=== PATIENT | male | born 1970 | race Caucasian/White ===

== ENCOUNTER 2023-05-06 13:01 | Inpatient (IN) | payer MEDICAID ==
[~2023-05-06] VITALS: Ht 170.2 cm; Wt 83.5 kg
[2023-05-06 13:39] VITALS: BP 176/96; PULSE 116; RESP 19; TEMP 98.3; O2SAT 99
[2023-05-06 16:31] LABS: BASOPHILS # (AUTO) 0.1 K/uL (0.00-0.22); BASOPHILS % (AUTO) 0.4 % (0.0-2.0); EOSINOPHILS # (AUTO) 0.9 K/uL (0-0.4); HEMATOCRIT 20.7 % (36-52); LYMPHOCYTES % (AUTO) 19.5 % (20.5-51.1); MEAN CORPUSCULAR HEMOGLOBIN 26 pg (27-31); MEAN CORPUSCULAR HGB CONC 32 g/dL (33-37); MEAN CORPUSCULAR VOLUME 80.1 fL (80-94); MONOCYTES # (AUTO) 1.2 K/uL (0.8-1.0); MONOCYTES % (AUTO) 7.7 % (1.7-9.3); NEUTROPHILS # (AUTO) 10.1 K/uL (1.8-7.7); NEUTROPHILS % (AUTO) 66.4 % (42.2-75.2); PLATELET COUNT (AUTO) 470 K/uL (140-450); RED BLOOD CELL COUNT(AUTO) 2.58 MIL/uL (4.20-6.10); RED CELL DISTRIBUTION WIDTH 24.7 % (11.6-13.7); WHITE BLOOD COUNT (AUTO) 15.3 K/uL (4.8-10.8)
[2023-05-06 16:38] LABS: HEMOGLOBIN 6.7 g/dL (12.0-18.0)
[2023-05-06 16:49] LABS: CARBON DIOXIDE 26.2 mmol/L (21-32); POTASSIUM 4.2 mmol/L (3.5-5.1)
[2023-05-06] MEDS: NACL 0.9% 2,000 ML IV ONE (17:42)
[2023-05-06 17:45] LABS: ALBUMIN 2.7 g/dL (3.4-5.0); BILIRUBIN,DIRECT 0.1 mg/dL (0.0-0.3); TOTAL BILIRUBIN 0.3 mg/dL (0.0-1.0); TOTAL PROTEIN, SERUM 8.1 g/dL (6.4-8.2)
[2023-05-06 17:56] LABS: INR 1.07 (0.8-1.2); PARTIAL THROMBOPLASTIN TIME 30.6 secs (22-35.6); PROTHROMBIN TIME 11.2 secs (10.8-13.4)
[2023-05-06] MEDS: MORPHINE SULFATE 2 MG/ML SYR IVP PRN (18:55)
[2023-05-06] MEDS ORDERED: LOSA-272 PO (19:33)
[2023-05-06] MEDS ORDERED: HYDR50TA38 PO (19:35)
[2023-05-06] MEDS: DEXT 5% / NACL 0.45% 1,000 ML IV SCH (22:23)
[2023-05-07] MEDS: HYDROcodone/APAP 5/325 MG 1 TAB TAB PO PRN (00:28)
[2023-05-07 05:37] LABS: BASOPHILS # (AUTO) 0.1 K/uL (0.00-0.22); BASOPHILS % (AUTO) 0.6 % (0.0-2.0); EOSINOPHILS # (AUTO) 1.3 K/uL (0-0.4); EOSINOPHILS % (AUTO) 11.7 % (0.0-4.0); HEMATOCRIT 20.9 % (36-52); LYMPHOCYTES % (AUTO) 27.1 % (20.5-51.1); MEAN CORPUSCULAR HEMOGLOBIN 26 pg (27-31); MEAN CORPUSCULAR HGB CONC 32 g/dL (33-37); MEAN CORPUSCULAR VOLUME 81.8 fL (80-94); MONOCYTES % (AUTO) 9.1 % (1.7-9.3); NEUTROPHILS # (AUTO) 5.7 K/uL (1.8-7.7); NEUTROPHILS % (AUTO) 51.5 % (42.2-75.2); PLATELET COUNT (AUTO) 377 K/uL (140-450); RED BLOOD CELL COUNT(AUTO) 2.55 MIL/uL (4.20-6.10); RED CELL DISTRIBUTION WIDTH 22.1 % (11.6-13.7); WHITE BLOOD COUNT (AUTO) 11.2 K/uL (4.8-10.8)
[2023-05-07 06:16] LABS: ALBUMIN 2.2 g/dL (3.4-5.0); ANION GAP 11.1 (8-16); CALCIUM 8.6 mg/dL (8.5-10.1); CARBON DIOXIDE 27.3 mmol/L (21-32); CREATININE 2.3 mg/dL (0.6-1.3); POTASSIUM 4.4 mmol/L (3.5-5.1); TOTAL BILIRUBIN 0.8 mg/dL (0.0-1.0); TOTAL PROTEIN, SERUM 6.5 g/dL (6.4-8.2)
[2023-05-07 06:48] LABS: HEMOGLOBIN 6.7 g/dL (12.0-18.0)
[2023-05-07] MEDS ORDERED: cefTRIAXone 1,000 MG VIAL ONE (07:06)
[2023-05-07] MEDS: PANTOPRAZOLE 40 MG TABEC PO SCH (09:02)
[2023-05-07 20:30] VITALS: BP 159/89; PULSE 100; RESP 18; TEMP 98.1; O2SAT 99
[2023-05-07 20:31] VITALS: PULSE 100; RESP 18; O2SAT 99
[2023-05-07 20:44] VITALS: PULSE 102
[2023-05-07 21:47] LABS: HEMATOCRIT 24.9 % (36-52)
[2023-05-07] MEDS: ACETAMINOPHEN 325 MG TAB PO PRN (23:37)
[2023-05-07 23:55] VITALS: PULSE 90
[2023-05-08] VITALS (8 sets, daily range): BP systolic 123–176; BP diastolic 70–99; PULSE 85–112; RESP 18–22; TEMP 97.6–98.9; O2SAT 95–100
[2023-05-08] MEDS: cefTRIAXone 1,000 MG VIAL ONE (06:48)
[2023-05-08 08:09] LABS: BASOPHILS % (AUTO) 0.4 % (0.0-2.0); EOSINOPHILS # (AUTO) 1.8 K/uL (0-0.4); EOSINOPHILS % (AUTO) 14.2 % (0.0-4.0); HEMATOCRIT 24.9 % (36-52); HEMOGLOBIN 8.2 g/dL (12.0-18.0); LYMPHOCYTES # (AUTO) 3.1 K/uL (2.0-11.5); LYMPHOCYTES % (AUTO) 25.3 % (20.5-51.1); MEAN CORPUSCULAR HEMOGLOBIN 27 pg (27-31); MEAN CORPUSCULAR HGB CONC 33 g/dL (33-37); MONOCYTES % (AUTO) 7.8 % (1.7-9.3); NEUTROPHILS # (AUTO) 6.5 K/uL (1.8-7.7); NEUTROPHILS % (AUTO) 52.3 % (42.2-75.2); PLATELET COUNT (AUTO) 400 K/uL (140-450); RED BLOOD CELL COUNT(AUTO) 3.03 MIL/uL (4.20-6.10); RED CELL DISTRIBUTION WIDTH 20.8 % (11.6-13.7); WHITE BLOOD COUNT (AUTO) 12.4 K/uL (4.8-10.8)
[2023-05-08 08:27] LABS: ALBUMIN 2.2 g/dL (3.4-5.0); ANION GAP 15.5 (8-16); CALCIUM 8.4 mg/dL (8.5-10.1); CREATININE 2.9 mg/dL (0.6-1.3); POTASSIUM 4.5 mmol/L (3.5-5.1); TOTAL BILIRUBIN 0.4 mg/dL (0.0-1.0); TOTAL PROTEIN, SERUM 6.9 g/dL (6.4-8.2)
[2023-05-08 09:06] LABS: PROTEIN, TOTAL, SERUM 7.4 g/dL (6.0-8.5)
[2023-05-08] MEDS ORDERED: ACYC-276 PO (10:15)
[2023-05-08] MEDS ORDERED: HYDR-2734 TP (10:15)
[2023-05-08] MEDS ORDERED: DOXY-690 PO (10:15)
[2023-05-08] MEDS: hydrALAZINE 20 MG/ML VIAL IVP PRN (20:31)
[2023-05-09] VITALS (8 sets, daily range): BP systolic 145–176; BP diastolic 75–100; PULSE 95–126; RESP 18; TEMP 96.8–98.4; O2SAT 97–100
[2023-05-09 03:41] LABS: APPEARANCE,URINE CLEAR (CLEAR); BILIRUBIN,URINE NEGATIVE (NEGATIVE); BLOOD, URINE 2+ (NEGATIVE); COLOR,URINE YELLOW (YELLOW); LEUKOCYTE ESTERASE ,URINE NEGATIVE (NEGATIVE); NITRITE, URINE NEGATIVE (NEGATIVE); PROTEIN,URINE NEGATIVE (NEGATIVE); UGLUCOSE NEGATIVE (NEGATIVE); UROBILINOGEN,URINE 0.2 EU/dL (0.2 - 1)
[2023-05-09 04:02] LABS: BACTERIA,URINE OCCASSIONAL /HPF (None Seen); RBC,URINE 20-50 /HPF (0-5); SQUAMOUS EPITHELIAL CELL,UR 0-3 (FEW) /LPF (0-3 (FEW)); WBC,URINE 0-5 /HPF (0-5)
[2023-05-09] MEDS: diphenhydrAMINE 50 MG/ML VIAL IVP ONE (06:59)
[2023-05-09] MEDS ORDERED: amLODIPine 5 MG TAB PO SCH (09:30)
[2023-05-09 16:28] LABS: BASOPHILS % (AUTO) 0.3 % (0.0-2.0); EOSINOPHILS # (AUTO) 1.8 K/uL (0-0.4); EOSINOPHILS % (AUTO) 12.2 % (0.0-4.0); HEMATOCRIT 29.5 % (36-52); HEMOGLOBIN 9.5 g/dL (12.0-18.0); LYMPHOCYTES # (AUTO) 3.9 K/uL (2.0-11.5); LYMPHOCYTES % (AUTO) 26.5 % (20.5-51.1); MEAN CORPUSCULAR HEMOGLOBIN 27 pg (27-31); MEAN CORPUSCULAR HGB CONC 32 g/dL (33-37); MEAN CORPUSCULAR VOLUME 82.2 fL (80-94); MONOCYTES % (AUTO) 6.7 % (1.7-9.3); NEUTROPHILS % (AUTO) 54.3 % (42.2-75.2); PLATELET COUNT (AUTO) 470 K/uL (140-450); RED BLOOD CELL COUNT(AUTO) 3.59 MIL/uL (4.20-6.10); RED CELL DISTRIBUTION WIDTH 21.2 % (11.6-13.7); WHITE BLOOD COUNT (AUTO) 14.7 K/uL (4.8-10.8)
[2023-05-09 16:58] LABS: ALBUMIN 2.6 g/dL (3.4-5.0); ANION GAP 16.1 (8-16); CREATININE 2.9 mg/dL (0.6-1.3); POTASSIUM 4.1 mmol/L (3.5-5.1); TOTAL BILIRUBIN 0.4 mg/dL (0.0-1.0)
[2023-05-09] MEDS: DICYCLOMINE HCL LIQUID 10 MG/5 ML UDC PO PRN (21:34)
[2023-05-09] MEDS: ALUMINUM HYD/MAG/SIMETHICONE 30 ML UDC PO PRN (21:35)
[2023-05-10] VITALS (12 sets, daily range): BP systolic 139–176; BP diastolic 92–106; PULSE 102–125; RESP 18–20; TEMP 97.4–98.5; O2SAT 98–99
[2023-05-10 05:41] LABS: BASOPHILS % (AUTO) 0.4 % (0.0-2.0); EOSINOPHILS # (AUTO) 1.1 K/uL (0-0.4); EOSINOPHILS % (AUTO) 9.9 % (0.0-4.0); HEMATOCRIT 25.9 % (36-52); HEMOGLOBIN 8.5 g/dL (12.0-18.0); LYMPHOCYTES # (AUTO) 2.6 K/uL (2.0-11.5); MEAN CORPUSCULAR HEMOGLOBIN 27 pg (27-31); MEAN CORPUSCULAR HGB CONC 33 g/dL (33-37); MEAN CORPUSCULAR VOLUME 81.8 fL (80-94); MONOCYTES # (AUTO) 0.8 K/uL (0.8-1.0); MONOCYTES % (AUTO) 7.6 % (1.7-9.3); NEUTROPHILS # (AUTO) 6.6 K/uL (1.8-7.7); NEUTROPHILS % (AUTO) 59.1 % (42.2-75.2); PLATELET COUNT (AUTO) 385 K/uL (140-450); RED BLOOD CELL COUNT(AUTO) 3.17 MIL/uL (4.20-6.10); RED CELL DISTRIBUTION WIDTH 20.5 % (11.6-13.7); WHITE BLOOD COUNT (AUTO) 11.2 K/uL (4.8-10.8)
[2023-05-10 06:39] LABS: ALBUMIN 2.4 g/dL (3.4-5.0); ANION GAP 16.8 (8-16); CARBON DIOXIDE 23.5 mmol/L (21-32); POTASSIUM 4.3 mmol/L (3.5-5.1); TOTAL BILIRUBIN 0.4 mg/dL (0.0-1.0); TOTAL PROTEIN, SERUM 7.5 g/dL (6.4-8.2)
[2023-05-10] MEDS: amLODIPine 5 MG TAB PO SCH (08:12)
[2023-05-10 09:54] LABS: INR 1.06 (0.8-1.2); PARTIAL THROMBOPLASTIN TIME 32.3 secs (22-35.6); PROTHROMBIN TIME 11.1 secs (10.8-13.4)
[2023-05-10] MEDS ORDERED: LORazepam 2 MG/ML VIAL IVP PRN (09:55)
[2023-05-10 10:06] LABS: AFP (TUMOR MARKER) 2.6 ng/mL (0.0-6.9)
[2023-05-10 16:06] LABS: A/G RATIO 0.7 (0.7-1.7); GAMMA GLOBULIN 1.6 g/dL (0.4-1.8); M-SPIKE Not Observed g/dL (Not Observed)
[2023-05-10 16:50] LABS: ALPHA-1-GLOBULIN 0.5 g/dL (0.1 - 0.4); ALPHA-2-GLOBULIN 1.3 g/dL (0.4 - 1.2); GLOBULIN, TOTAL 4.4 g/dL (2.0 - 4.5)
[2023-05-10 16:51] LABS: CARCINOEMBRYONIC AG 7.4 ng/mL (0.0-4.7)
[2023-05-11] VITALS: BP 149/91; PULSE 106; RESP 20; TEMP 97.8; O2SAT 99
[2023-05-11 04:00] VITALS: BP 148/93; PULSE 95; PULSE 98; RESP 20; TEMP 97.7; O2SAT 99
[2023-05-11 05:30] LABS: BASOPHILS # (AUTO) 0.1 K/uL (0.00-0.22); BASOPHILS % (AUTO) 0.6 % (0.0-2.0); EOSINOPHILS # (AUTO) 1.1 K/uL (0-0.4); EOSINOPHILS % (AUTO) 10.5 % (0.0-4.0); HEMATOCRIT 25.5 % (36-52); HEMOGLOBIN 8.3 g/dL (12.0-18.0); LYMPHOCYTES # (AUTO) 2.1 K/uL (2.0-11.5); LYMPHOCYTES % (AUTO) 20.3 % (20.5-51.1); MEAN CORPUSCULAR HEMOGLOBIN 27 pg (27-31); MEAN CORPUSCULAR HGB CONC 33 g/dL (33-37); MEAN CORPUSCULAR VOLUME 82.1 fL (80-94); MONOCYTES # (AUTO) 0.9 K/uL (0.8-1.0); MONOCYTES % (AUTO) 8.6 % (1.7-9.3); NEUTROPHILS # (AUTO) 6.1 K/uL (1.8-7.7); PLATELET COUNT (AUTO) 353 K/uL (140-450); RED CELL DISTRIBUTION WIDTH 21.1 % (11.6-13.7); WHITE BLOOD COUNT (AUTO) 10.2 K/uL (4.8-10.8)
[2023-05-11 06:00] LABS: ALBUMIN 2.5 g/dL (3.4-5.0); ANION GAP 16.3 (8-16); CALCIUM 9.3 mg/dL (8.5-10.1); CARBON DIOXIDE 24.5 mmol/L (21-32); CREATININE 3.1 mg/dL (0.6-1.3); POTASSIUM 4.8 mmol/L (3.5-5.1); TOTAL BILIRUBIN 0.4 mg/dL (0.0-1.0); TOTAL PROTEIN, SERUM 7.5 g/dL (6.4-8.2)
[2023-05-11] MEDS: NIFEdipine 60 MG TABER PO SCH (08:16)
[2023-05-11 08:47] VITALS: BP 157/98; PULSE 103; RESP 20; TEMP 98; O2SAT 98
[2023-05-11 08:49] VITALS: PULSE 103; PULSE 94; RESP 20; TEMP 98; O2SAT 98
[2023-05-11 09:06] LABS: PSA FREE REFLE CRITERIA SEE COMMENTS
[2023-05-11 16:23] VITALS: BP 122/77; PULSE 108; RESP 20; TEMP 98; O2SAT 98
[2023-05-11 20:00] VITALS: PULSE 103; RESP 20; O2SAT 98
[2023-05-12] VITALS: BP 133/81; PULSE 98; RESP 20; TEMP 97.6; O2SAT 98
[2023-05-12 06:10] LABS: BASOPHILS # (AUTO) 0.1 K/uL (0.00-0.22); BASOPHILS % (AUTO) 0.7 % (0.0-2.0); EOSINOPHILS # (AUTO) 1.1 K/uL (0-0.4); EOSINOPHILS % (AUTO) 9.2 % (0.0-4.0); HEMATOCRIT 26.5 % (36-52); HEMOGLOBIN 8.4 g/dL (12.0-18.0); LYMPHOCYTES % (AUTO) 25.8 % (20.5-51.1); MEAN CORPUSCULAR HEMOGLOBIN 26 pg (27-31); MEAN CORPUSCULAR HGB CONC 32 g/dL (33-37); MEAN CORPUSCULAR VOLUME 82.6 fL (80-94); MONOCYTES % (AUTO) 8.7 % (1.7-9.3); NEUTROPHILS # (AUTO) 6.4 K/uL (1.8-7.7); NEUTROPHILS % (AUTO) 55.6 % (42.2-75.2); PLATELET COUNT (AUTO) 410 K/uL (140-450); WHITE BLOOD COUNT (AUTO) 11.5 K/uL (4.8-10.8)
[2023-05-12 06:41] LABS: ALBUMIN 2.5 g/dL (3.4-5.0); ANION GAP 16.2 (8-16); CALCIUM 8.8 mg/dL (8.5-10.1); CARBON DIOXIDE 24.4 mmol/L (21-32); CREATININE 2.8 mg/dL (0.6-1.3); POTASSIUM 4.6 mmol/L (3.5-5.1); TOTAL BILIRUBIN 0.4 mg/dL (0.0-1.0); TOTAL PROTEIN, SERUM 7.8 g/dL (6.4-8.2)
[2023-05-12] MEDS: LACTATED RINGERS 1,000 ML IV SCH (07:15)
[2023-05-12] MEDS ORDERED: ONDANSETRON 4 MG/2 ML VIAL IVP PRN (07:15)
[2023-05-12] MEDS ORDERED: HYDROmorphone 1 MG/ML AMP IVP PRN (07:15)
[2023-05-12] MEDS: DEXAMETHASONE 4 MG/ML VIAL ONE (07:58)
[2023-05-12] MEDS: METOCLOPRAMIDE 10 MG/2 ML INJ VIAL ONE (07:58)
[2023-05-12] MEDS: PROPOFOL 200 MG/20 ML VIAL IV ONE (07:58)
[2023-05-12] MEDS: ONDANSETRON 4 MG/2 ML VIAL ONE (07:58)
[2023-05-12] MEDS: MIDAZOLAM 2 MG/2 ML VIAL ONE (07:58)
[2023-05-12] MEDS: fentaNYL citrate 0.05 MG/ML VIAL ONE (07:58)
[2023-05-12] MEDS: SUCCINYLCHOLINE CHLORIDE 200 MG/10 ML VIAL IVP ONE (07:59)
[2023-05-12] MEDS: ESMOLOL 10 ML IV ONE (07:59)
[2023-05-12] MEDS: ROCURONIUM 50 MG/5 ML VIAL IV ONE (07:59)
[2023-05-12] MEDS: BLOOD GLUCOSE MONITORING 1 DEV DEV FS ONE (08:00)
[2023-05-12] MEDS: SUGAMMADEX SODIUM 200 MG/2 ML VIAL IV ONE (08:20)
[2023-05-12 09:16] VITALS: PULSE 103; PULSE 120; RESP 20; TEMP 98; O2SAT 98
[2023-05-12 09:39] VITALS: BP 134/79; PULSE 120; RESP 20; TEMP 96.9; O2SAT 94
[2023-05-12] MEDS: diphenhydrAMINE 50 MG/ML VIAL IVP PRN (15:48)
[2023-05-12 16:00] VITALS: BP 124/76; PULSE 97; RESP 18; TEMP 98.2; O2SAT 98
[2023-05-12] MEDS: DOCUSATE SODIUM 100 MG GELCAP PO PRN (19:15)
[2023-05-12 20:00] VITALS: RESP 20; O2SAT 98
[2023-05-13] VITALS: BP 118/72; PULSE 96; RESP 18; TEMP 97.2; O2SAT 98
[2023-05-13 08:00] VITALS: BP 119/77; PULSE 102; RESP 20; TEMP 97.2; O2SAT 99
[2023-05-13] MEDS: BICALUTAMIDE 50 MG TAB PO SCH (08:54)
[2023-05-13 16:00] VITALS: BP 116/71; PULSE 107; RESP 18; TEMP 97.3; O2SAT 97
[2023-05-13 20:00] VITALS: PULSE 90; RESP 20; O2SAT 98
[2023-05-14 04:00] VITALS: BP 112/64; PULSE 99; RESP 18; TEMP 99.3; O2SAT 97
[2023-05-14 08:00] VITALS: BP 145/94; PULSE 100; RESP 20; TEMP 97.7; O2SAT 97
[2023-05-14 08:25] VITALS: TEMP 98.3
[2023-05-14 08:31] VITALS: PULSE 89; RESP 19; O2SAT 99
[2023-05-14 16:00] VITALS: BP 145/83; PULSE 105; RESP 20; TEMP 97.8; O2SAT 97
[2023-05-14 20:00] VITALS: BP 144/80; PULSE 107; RESP 18; TEMP 97.6; O2SAT 100
[2023-05-15 04:00] VITALS: BP 138/76; PULSE 98; RESP 18; TEMP 97.8; O2SAT 100
[2023-05-15 07:49] LABS: BASOPHILS # (AUTO) 0.1 K/uL (0.00-0.22); BASOPHILS % (AUTO) 1.2 % (0.0-2.0); EOSINOPHILS # (AUTO) 0.6 K/uL (0-0.4); EOSINOPHILS % (AUTO) 6.7 % (0.0-4.0); HEMATOCRIT 27.7 % (36-52); LYMPHOCYTES # (AUTO) 2.4 K/uL (2.0-11.5); LYMPHOCYTES % (AUTO) 25.5 % (20.5-51.1); MEAN CORPUSCULAR HEMOGLOBIN 27 pg (27-31); MEAN CORPUSCULAR HGB CONC 32 g/dL (33-37); MONOCYTES % (AUTO) 9.9 % (1.7-9.3); NEUTROPHILS # (AUTO) 5.5 K/uL (1.8-7.7); NEUTROPHILS % (AUTO) 56.7 % (42.2-75.2); PLATELET COUNT (AUTO) 560 K/uL (140-450); RED BLOOD CELL COUNT(AUTO) 3.38 MIL/uL (4.20-6.10); RED CELL DISTRIBUTION WIDTH 20.5 % (11.6-13.7); WHITE BLOOD COUNT (AUTO) 9.6 K/uL (4.8-10.8)
[2023-05-15 07:57] LABS: ALBUMIN 2.6 g/dL (3.4-5.0); ANION GAP 17.7 (8-16); CALCIUM 9.1 mg/dL (8.5-10.1); CARBON DIOXIDE 24.6 mmol/L (21-32); CREATININE 1.7 mg/dL (0.6-1.3); POTASSIUM 4.3 mmol/L (3.5-5.1); TOTAL BILIRUBIN 0.4 mg/dL (0.0-1.0)
[2023-05-15 08:00] VITALS: BP 138/94; PULSE 98; RESP 16; TEMP 97.6; O2SAT 98
[2023-05-15 08:45] LABS: ANISOCYTOSIS 3+; HYPOCHROMASIA 1+
[2023-05-15 11:03] VITALS: PULSE 77; PULSE 90; RESP 16; RESP 17; O2SAT 96; O2SAT 98
[2023-05-15] MEDS ORDERED: BICA50TA7 PO (11:36)
[2023-05-15] MEDS ORDERED: NIFE60TA39 PO (11:36)
[2023-05-15] MEDS ORDERED: ACET-1182 PO (11:36)
[2023-05-15 20:00] VITALS: PULSE 90; RESP 18; O2SAT 99
[2023-05-16] VITALS: BP 145/87; PULSE 98; RESP 18; TEMP 96.6; O2SAT 99
[2023-05-16 08:00] VITALS: BP 144/88; PULSE 84; PULSE 89; RESP 18; RESP 19; TEMP 98.3; O2SAT 100; O2SAT 99
== END 2023-05-16 15:00 | disposition home or self-care (01) | DRG 500 ==
LOC: MED 13:01 → MTU 18:16 → MMU 05-09 23:50
PROVIDERS: ADMIT Family Medicine; ATTEND Family Medicine
PROC: 30233N1 Transfusion of Nonautologous Red Blood Cells into Peripheral Vein, Percutaneous Approach (ICD-10-PCS; 2023-05-06)
PROC: 0T9B80Z Drainage of Bladder with Drainage Device, Via Natural or Artificial Opening Endoscopic (ICD-10-PCS; principal; 2023-05-12 07:30)
DX: C61 Malignant neoplasm of prostate (principal); R65.11 Systemic inflammatory response syndrome (SIRS) of non-infectious origin with acute organ dysfunction; N17.0 Acute kidney failure with tubular necrosis; E43 Unspecified severe protein-calorie malnutrition; C79.51 Secondary malignant neoplasm of bone; E87.1 Hypo-osmolality and hyponatremia; N13.30 Unspecified hydronephrosis; D64.9 Anemia, unspecified; N32.0 Bladder-neck obstruction; D75.839 Thrombocytosis, unspecified; I12.9 Hypertensive chronic kidney disease with stage 1 through stage 4 chronic kidney disease, or unspecified chronic kidney disease; N18.9 Chronic kidney disease, unspecified; Z79.899 Other long term (current) drug therapy; Z68.28 Body mass index [BMI] 28.0-28.9, adult
CPT/HCPCS: 36415; 36430; 72170; 77074; 80048; 80053; 80076; 81001; 82105; 82378; 82728; 82948; 83540; 84154; 84165; 85018; 85025; 85610; 85730; 86301; 86886; 86900; 86901; 86920; 87040; 87081; 87086; 93005; 93971; 96360; 99285; J0330; J0360; J0696; J1100; J1200; J2250; J2270; J2405; J2704; J2765; J3010; J3490; J7060; P9016

== ENCOUNTER 2023-06-24 12:58 | Emergency (ER) | payer SELFPAY ==
[~2023-06-24] VITALS: Ht 170.2 cm; Wt 73.0 kg
[~2023-06-24 12:58] MED LIST: ACET-1182 PO; BICA50TA7 PO; NIFE60TA39 PO
[2023-06-24 13:00] VITALS: BP 181/103; PULSE 96; RESP 18; TEMP 97.5; O2SAT 100
[2023-06-24] MEDS ORDERED: NACL 0.9% 1,000 ML IV SCH (15:40)
[2023-06-24 17:03] LABS: APPEARANCE,URINE SL CLOUDY (CLEAR); BILIRUBIN,URINE NEGATIVE (NEGATIVE); BLOOD, URINE 3+ (NEGATIVE); COLOR,URINE YELLOW (YELLOW); LEUKOCYTE ESTERASE ,URINE 3+ (NEGATIVE); NITRITE, URINE NEGATIVE (NEGATIVE); PROTEIN,URINE 2+ (NEGATIVE); UGLUCOSE NEGATIVE (NEGATIVE); UROBILINOGEN,URINE 0.2 EU/dL (0.2 - 1)
[2023-06-24 17:06] LABS: BASOPHILS # (AUTO) 0.1 K/uL (0.00-0.22); BASOPHILS % (AUTO) 1.1 % (0.0-2.0); EOSINOPHILS # (AUTO) 0.2 K/uL (0-0.4); EOSINOPHILS % (AUTO) 1.5 % (0.0-4.0); HEMATOCRIT 26.6 % (36-52); HEMOGLOBIN 8.8 g/dL (12.0-18.0); LYMPHOCYTES # (AUTO) 1.3 K/uL (2.0-11.5); LYMPHOCYTES % (AUTO) 11.8 % (20.5-51.1); MEAN CORPUSCULAR HEMOGLOBIN 27 pg (27-31); MEAN CORPUSCULAR HGB CONC 33 g/dL (33-37); MEAN CORPUSCULAR VOLUME 81.1 fL (80-94); MONOCYTES # (AUTO) 1.7 K/uL (0.8-1.0); MONOCYTES % (AUTO) 15.4 % (1.7-9.3); NEUTROPHILS # (AUTO) 7.7 K/uL (1.8-7.7); NEUTROPHILS % (AUTO) 70.2 % (42.2-75.2); PLATELET COUNT (AUTO) 359 K/uL (140-450); RED BLOOD CELL COUNT(AUTO) 3.28 MIL/uL (4.20-6.10); WHITE BLOOD COUNT (AUTO) 10.9 K/uL (4.8-10.8)
[2023-06-24 17:15] LABS: RBC,URINE 11-20 (MOD) /HPF (0-5)
[2023-06-24 17:16] LABS: BACTERIA,URINE 2+ /HPF (None Seen); MUCUS,URINE None Seen /LPF (None Seen); SQUAMOUS EPITHELIAL CELL,UR 4-10 (MOD) /LPF (0-3 (FEW)); WBC,URINE 16-25 (MOD) /HPF (0-5)
[2023-06-24 17:19] LABS: ANION GAP 16.4 (8-16); CALCIUM 9.3 mg/dL (8.5-10.1); CARBON DIOXIDE 24.7 mmol/L (21-32); POTASSIUM 5.1 mmol/L (3.5-5.1)
[2023-06-24 17:28] LABS: CREATININE 4.1 mg/dL (0.6-1.3)
[2023-06-24 17:31] LABS: ALBUMIN 2.7 g/dL (3.4-5.0); BILIRUBIN,DIRECT 0.2 mg/dL (0.0-0.3); TOTAL BILIRUBIN 0.8 mg/dL (0.0-1.0); TOTAL PROTEIN, SERUM 7.6 g/dL (6.4-8.2)
[2023-06-24] MEDS ORDERED: CIPR500T4 PO (17:47)
== END 2023-06-24 18:22 | disposition home or self-care (01) ==
LOC: MED 12:58
DX: R33.9 Retention of urine, unspecified (principal); N39.0 Urinary tract infection, site not specified; I10 Essential (primary) hypertension; Z98.890 Other specified postprocedural states; Z79.899 Other long term (current) drug therapy
CPT/HCPCS: 36415; 80048; 80076; 81001; 83690; 85025; 87086; 87186; 93005; 99284